=== PATIENT | male | born 1990 | race Caucasian/White ===

== ENCOUNTER 2016-09-03 19:57 | Emergency (ER) | payer BC ==
[~2016-09-03] VITALS: Ht 195.6 cm; Wt 99.8 kg
[2016-09-03] MEDS ORDERED: ABILIFY10 MG ORAL (20:06)
[2016-09-03] MEDS ORDERED: SEROQUEL50 MG ORAL (20:06)
[2016-09-03] MEDS ORDERED: GABAPENTIN600 MG ORAL (20:06)
[2016-09-03] MEDS ORDERED: CYMBALTA60 MG ORAL (20:06)
[2016-09-03] MEDS ORDERED: Ketorolac 30mg Inj IM ONE (20:45)
[2016-09-03 21:47] VITALS: BP 141/91
--- NOTE | 2016-09-05 18:52 | Cardiology Report ---
APPROVED REPORT EKG Measurement Heart [id number] Sinus tachycardia Otherwise normal ECG
--- NOTE | 2016-09-06 12:10 | Emergency Room Report ---
History of Present Illness General Chief Complaint: Chest Pain Source: Patient Present Illness HPI The patient is a 26-year-old male with history of anxiety disorder and major depression presenting for a headache and chest pain which began earlier this afternoon. The patient describes the headache as an 8/10 dull/throbbing ache. The patient states this feels typical for his headaches. The patient describes the chest pain as a 5/10 sharp sensation felt to be mid chest. This pain does not radiate. No known provoking or relieving factors. The patient has tried a beta el to help with his anxiety and the chest pain but states it has not helped. The patient has not seen a psychiatrist in the past year. The patient states he is doing a rehabilitation program and does not take benzodiazepines. The patient denies other symptoms including nausea, vomiting, fever, chills, neck pain or stiffness, diaphoresis, numbness or tingling, shortness of breath Allergies: Coded Allergies: No Known Allergies (Unverified , 09/03/16) Patient History Past Medical History: see triage record Pertinent Family History: none Reviewed Nursing Documentation: PMH: Agreed, PSxH: Agreed Nursing Documentation-PMH Hx Cardiac Problems: Yes - HEART ATTACK 3 MONTHS AGO History Of Psychiatric Problem: Yes - DEPRESSION ,ANXIETY Review of Systems All Other Systems: negative except mentioned in HPI Physical Exam Vital Signs Date Time Temp Pulse Resp B/P Pulse Ox O2 Delivery O2 Flow Rate FiO2 09/03/16 19:59 98.2 108 18 141/91 99 09/03/16 20:09 Room Air Sp02 EP Interpretation: reviewed, normal General Appearance: normal inspection, well appearing, alert, GCS 15, non-toxic Head: normocephalic, atraumatic Eyes: bilateral eye PERRL, bilateral eye normal inspection ENT: hearing grossly normal, normal pharynx, no angioedema, normal voice Neck: full range of motion, supple/symm/no masses Respiratory: chest non-tender, lungs clear, normal breath sounds, no wheezing, speaking full sentences Cardiovascular #1: regular rate, rhythm, no edema Gastrointestinal: normal bowel sounds, non tender, soft, non-distended, no guarding, no rebound Musculoskeletal: back normal, gait/station normal, normal range of motion, non- tender Neurologic: alert, oriented x3, responsive, normal gait Psychiatric: no suicidal/homicidal ideation, no delusions, anxious Skin: normal color, no rash, warm/dry, well hydrated Lymphatic: no adenopathy Medical Decision Making PA Attestation Dr. Meade is my supervising physician. Patient management was discussed with my supervising physician Diagnostic Impression: Primary Impression: Anxiety ER Course The patient is a 26-year-old male with history of anxiety disorder and major depression presenting for a headache and chest pain Differential diagnoses considered but not limited to anxiety disorder, ACS, pericarditis, migraine PE: pt is visibly anxious. Tachycardia HEENT unremarkable. Lungs CTA bilat RRR at time of exam. No MRG The patient is offered Ativan another anti-anxiolytics but declines. The patient is given Toradol for pain which does help. The patient was discharged home and needs to follow up with psychiatrist and PMD as soon as possible. ER precautions are given EKG Diagnostic Results Rate: tachycardiac - 103 Rhythm: NSR ST Segments: no acute changes ASA given to the pt in ED: No PA Scribe Text EKG was reviewed and read with my supervising physician. No acute ST segment changes are seen. No acute changes. Last Vital Signs Date Time Temp Pulse Resp B/P Pulse Ox O2 Delivery O2 Flow Rate FiO2 09/03/16 21:47 98.2 18 141/91 99 Room Air 09/03/16 20:09 108 Status: improved Disposition: HOME, SELF-CARE Condition: Improved Referrals: NOT CHOSEN IPA/MD,REFERRING (PCP) Patient Instructions: Panic Attacks Additional Instructions: I discussed my findings with the patient. All questions and concerns have been answered. Treatment and medication compliance have been addressed. I advised the patient that they need to follow up with PMD in 3-5 days. Return to ED if symptoms worsen, new symptoms arise, or if needed for any reason. Patient verbalized understanding of discharge instructions. TRISH TAYLOR Sep 06, 2016 12:10
== END 2016-09-03 21:47 | disposition home or self-care (01) ==
LOC: EMR 20:29
DX: F41.9 Anxiety disorder, unspecified (principal); R51 Headache; I25.2 Old myocardial infarction; R00.0 Tachycardia, unspecified; F33.2 Major depressive disorder, recurrent severe without psychotic features
CPT/HCPCS: 93005; 96372; 99283; J1885

== ENCOUNTER 2016-11-07 09:43 | Emergency (ER) | payer BC ==
[~2016-11-07] VITALS: Ht 195.6 cm; Wt 95.3 kg
[~2016-11-07 09:43] MED LIST: ABILIFY10 MG ORAL; CYMBALTA60 MG ORAL; GABAPENTIN600 MG ORAL; SEROQUEL50 MG ORAL
[2016-11-07] MEDS ORDERED: ISENTRESS PO (09:55)
[2016-11-07 10:07] VITALS: BP 114/70
[2016-11-07] MEDS ORDERED: ISENTRESS400 MG ORAL (10:18)
[2016-11-07 10:50] VITALS: BP 114/70
--- NOTE | 2016-11-07 11:08 | Emergency Room Report ---
History of Present Illness General Chief Complaint: General Complaint Source: Patient, Medical Record Present Illness HPI Patient present with complaints that his post exposure prophylaxis medication was lost Patient reports that he is already on PREP And was exposed last week Denies any headache or visual changes denies any chest pain or shortness of breath denies any abdominal pain denies any dysuria frequency Patient reports that initial medication was filled at [facility] However as he lost the rest of the medication he presents for further intervention Allergies: Coded Allergies: No Known Allergies (Unverified , 09/03/16) Patient History Past Medical History: see triage record Pertinent Family History: none Reviewed Nursing Documentation: PMH: Agreed, PSxH: Agreed Nursing Documentation-PMH Hx Cardiac Problems: Yes - [place] 05/2016 Review of Systems All Other Systems: negative except mentioned in HPI Physical Exam Vital Signs Date Time Temp Pulse Resp B/P Pulse Ox O2 Delivery O2 Flow Rate FiO2 11/07/16 09:47 98.1 70 16 114/70 10 Room Air Sp02 EP Interpretation: reviewed, normal General Appearance: well appearing, no apparent distress Head: normocephalic, atraumatic Eyes: bilateral eye EOMI, bilateral eye PERRL ENT: hearing grossly normal, normal pharynx, TMs + canals normal, uvula midline Neck: full range of motion, supple, no meningismus, no bony tend Respiratory: lungs clear, normal breath sounds, no rhonchi, no respiratory distress, no retraction, no accessory muscle use Cardiovascular #1: normal peripheral pulses, regular rate, rhythm, no edema, no gallop, no JVD, no murmur Gastrointestinal: normal bowel sounds, non tender, soft, no mass, no organomegaly, non-distended, no guarding, no hernia, no pulsatile mass, no rebound Genitourinary: no CVA tenderness Musculoskeletal: normal inspection Neurologic: oriented x3, responsive, financial reporting specialist III-XII nml as tested, motor strength/ tone normal, sensory intact Psychiatric: mood/affect normal Skin: normal color, no rash, warm/dry, palpation normal Lymphatic: normal inspection, no adenopathy Medical Decision Making Diagnostic Impression: Primary Impression: PEP meds ER Course Patient was provided with medication This is a 7 day course and the patient requires further, followup with primary physician for continued medication Last Vital Signs Date Time Temp Pulse Resp B/P Pulse Ox O2 Delivery O2 Flow Rate FiO2 11/07/16 10:50 98.1 70 16 114/70 10 Room Air Status: unchanged Disposition: HOME, SELF-CARE Condition: Stable Scripts Raltegravir (Isentress) 400 Mg Tablet 400 MG ORAL EVERY 12 HOURS, #14 TAB Prov: SU MARSHALL D.O. 11/07/16 Referrals: NOT CHOSEN IPA/MD,REFERRING (PCP) Patient Instructions: HIV Infection and AIDS Additional Instructions: Patient is provided with the discharge instructions notified to follow up with primary doctor in the next 2-3 days otherwise return to the er with any worsening symptoms. Please note that this report is being documented using [employer] technology. This can lead to erroneous entry secondary to incorrect interpretation by the dictating instrument. SU MARSHALL D.O. November 07, 2016 11:08
== END 2016-11-07 10:40 | disposition home or self-care (01) ==
LOC: EMR 10:23
DX: Z76.0 Encounter for issue of repeat prescription (principal); I25.2 Old myocardial infarction
CPT/HCPCS: 99283